=== PATIENT | female | born 1935 | race African-American/Black ===

== ENCOUNTER 2022-01-07 06:45 | Inpatient (IN) | payer OTHER ==
--- OUTSIDE RECORDS SUMMARY | 2022-01-07 07:00 | XMS REPORT | Continuity of Care Document ---
:1935 Author Organization [facility] t Address [address] [place] [address] Care Team Providers Name Role Phone Francesca Villafana Attending Clinician Unavailable MANUEL HONG Attending Clinician Unavailable KATELYN KHAN Attending Clinician Unavailable Payers Payer Name Policy Type Policy Number Effective Date Expiration Date S lalita MEDICARE A B [id number] 1999 00:00:00 Problems This patient has no known problems. Allergies, Adverse Reactions, Alerts Allergy Allergy Status Severity Reaction(s) Onset Inactive Treating Comm ents Source Name Type Date Date Clinician NO KNOWN Allergy Active [facility] Metoprol Adverse Active Info Not Commo n ol Reaction Available Spiri t Tartrate - [facility] Medications Ordered Filled Start Stop Current Ordering Indication Dosage Frequency Signature Comments Components Source Medication Medication Date Date Medication? Clinician (SIG) Name Name Eliquis 2.5 Eliquis 2.5 2020-0 2020- No Na Villafana one Common mg mg 2-10 08-08 [facility] 00:00: 00:00 - [facility] 00 :00 [facility] Sotalol HCl Sotalol HCl Yes Na Villafana 0.5 tablet [facility] Boniva Boniva Yes Na Villafana TAKE 1 Common TABLET BY Spirit MOUTH ONCE - [facility] A MONTH [facility] Vitamin D-3 Vitamin D-3 Yes Na Villafana 1 capsule [facility] Betapace Betapace Yes Na Villafana 1 tablet [facility] Amlodipine Amlodipine Yes Na Villafana 1 tablet Common Besylate Besylate [facility] Pravachol Pravachol Yes Na Villafana 1 tablet Common [facility] Pravastatin Pravastatin Yes Na Villafana TAKE 1 Common Sodium Sodium TABLET [facility] EVERY DAY [facility] Immunizations Ordered Immunization Filled Immunization Date Status Commen ts Source Name Name Cookie Gary 2019-09-04 Completed Common [facility] 00:00:00 - [facility] Vital Signs Vital Name Observation Time Observation Value Comments Source HEIGHT 2020-07-17 13:01:00 147.3 cm WEIGHT 2020-07-17 13:01:00 35.834 kg HEIGHT 2020-07-12 11:37:00 147.3 cm WEIGHT 2020-07-12 11:37:00 35.834 kg HEIGHT 2020-07-12 11:37:00 147.3 cm WEIGHT 2020-07-12 11:37:00 35.834 kg Procedures This patient has no known procedures. Encounters Start End Encounter Admission Attending Care Care Encounter Source Date/Time Date/Time Type Type Clinicians Facility Department ID 2021-11-05 Outpatient Villafana, Na STLMLC STLMLC [id number] Common 14:58:01 [facility] 2021-09-26 Outpatient Villafana, Na STLMLC STLMLC [id number] 2 Common 09:49:00 [facility] 2021-09-25 Outpatient Villafana, Na STLMLC STLMLC [id number] 2 Common 09:27:01 [facility] 2021-09-24 Outpatient Villafana, Na STLMLC STLMLC [id number] 2 Common 11:19:00 [facility] 2021-08-20 Outpatient Villafana, Na STLMLC STLMLC [id number] 2 Common 12:23:50 [facility] 2021-08-20 Outpatient Villafana, Na STLMLC STLMLC [id number] 2 Common 12:23:21 [facility] 2021-08-20 Outpatient Villafana, Na STLMLC STLMLC [id number] 2 Common 12:02:45 [id number] [facility] 2021-08-20 Outpatient Villafana, Na STLMLC STLMLC [id number] 2 Common 11:54:51 [id number] [facility] 2021-08-20 Outpatient Villafana, Na STLMLC STLMLC [id number] 2 Common 11:38:08 [id number] [facility] 2021-12-26 2021-12-26 ambulatory STLMLC STLMLC [id number] Common 00:00:00 00:00:00 [facility] 2021-10-22 2021-10-22 ambulatory STLMLC STLMLC [id number] Common 00:00:00 00:00:00 [facility] 2021-10-08 2021-10-08 ambulatory STLMLC STLMLC [id number] Common 00:00:00 00:00:00 [facility] 2021-09-26 2021-09-26 ambulatory STLMLC STLMLC [id number] Common 00:00:00 00:00:00 [facility] 2021-09-26 2021-09-26 ambulatory STLMLC STLMLC [id number] Common 00:00:00 00:00:00 [facility] 2021-08-27 2021-08-27 ambulatory STLMLC STLMLC [id number] Common 00:00:00 00:00:00 [facility] 2020-09-26 2020-09-26 Outpatient STLMLC STL[facility]C [id number] Common 00:00:00 00:00:00 [facility] 2020-09-25 2020-09-25 Outpatient STLMLC STLMLC [id number] Common 00:00:00 00:00:00 [facility] 2020-08-16 2020-08-16 Outpatient STLMLC STL[facility]C [id number] Common 00:00:00 00:00:00 [facility] 2020-07-17 2020-07-17 Outpatient HE, JILL [facility] [id number] [facility] 00:00:00 00:00:00 [facility] 2020-07-12 2020-07-12 Emergency ER [facility] Emergency [id number] [facility] 11:21:00 11:21:00 2020-05-31 2020-05-31 Outpatient STLMLC STLMLC [id number] Common 00:00:00 00:00:00 [facility] 2020-05-22 2020-05-22 Outpatient STLMLC STL[facility]C [id number] Common 00:00:00 00:00:00 [facility] 2020-03-13 2020-03-13 [id number] Common 08:40:00 08:40:[address] [facility] 2019-11-09 2019-11-09 [facility] [id number] Common 12:11:00 12:11:[address] [facility] 2019-09-04 2019-09-04 [facility] [id number] Common 08:00:00 08:00:[address] [facility] 2019-08-10 2019-08-10 [facility] [id number] Common 09:49:00 09:49:[address] [facility] 2019-08-10 2019-08-10 [facility] [id number] Common 09:43:00 09:43:[address] [facility] 2019-08-10 2019-08-10 [facility] [id number] Common 09:43:00 09:43:[address] [facility] 2019-08-10 2019-08-10 [facility] [id number] Common 09:42:00 09:42:[address] [facility] 2019-08-09 2019-08-09 [facility] [id number] Common 14:50:00 14:50:[address] [facility] 2019-05-16 2019-05-16 [facility] [id number] Common 14:45:00 14:45:[address] [facility] 2019-03-03 2019-03-03 [facility] [id number] Common 08:00:00 08:00:[address] [facility] 2018-11-03 2018-11-03 [facility] [id number] Common 10:18:00 10:18:[address] [facility] 2018-10-27 2018-10-27 [facility] [id number] Common 08:30:00 08:30:[address] [facility] 2018-09-12 2018-09-12 [facility] [id number] Common 08:39:00 08:39:[address] [facility] 2018-09-01 2018-09-01 [facility] [id number] Common 11:06:00 11:06:[address] [facility] 2018-09-01 2018-09-01 [facility] [id number] Common 11:05:00 11:05:[address] [facility] 2018-09-01 2018-09-01 [facility] [id number] Common 08:15:00 08:15:[address] [facility] 2018-03-04 2018-03-04 [facility] [id number] Common 08:15:00 08:15:[address] [facility] Results Test Description Test Time Test Comments Results Result Sour e Comments CT, BRAIN, WITHOUT 2020-07-12 Reason for CONTRAST 14:09:00 exam:->FALLWha t is the JOHN patient's [facility] sedation CENTERName: roland CANALES-> ZEESHAN R : No Sedation 1935 Sex: F FI NAL REPORT CT Head without contrast CLINICAL HISTORY: Unlisted Reason for ExamFALL TECHNIQUE: Contiguous axial images through the head without contrast. This exam was performed according to the departmental dose optimization program which includes automated exposure control, adjustment of the mA and/or kV according to the patient size, and/or use of an iterative reconstruction technique. COMPARISON: None FINDINGS: There is no evidence of skull fracture or intracranial hemorrhage. There is periventricular and subcortical white matter hypodensity which is nonspecific but compatible with chronic microvascular ischemic change. There are atherosclerotic calcifications of the intracranial circulation. There is generalized parenchymal volume loss without hydrocephalus, midline shift, or apparent mass effect. There are no extra-axial fluid collections. The paranasal sinuses are well-aerated. IMPRESSION: No evidence of skull fracture or intracranial hemorrhage. Signed: Gregg Zepeda MDRort Verified Date/Time: 07/12/2020 14:09:51 Reading Location: [address] Neuro Reading Room , KNEE, 2020-07-12 Reason for COMPLETE (4 12:57:00 exam:->FALL VIEWS), LEFT [facility] CENTERName: ZEESHAN CANALES : 1935 Sex: F FI NAL REPORT TECHNIQUE: Four views of left knee HISTORY: FALL. COMPARISON: None. IMPRESSION:No acute displaced fracture or dislocation. Slightly limited exam due to degenerative change.Severe joint space narrowing with osteophytosis and multiple posterior knee calcific densities, likely loose bodies.Vascular calcifications. Signed: Henry Elam MDReport Verified Date/Time: 07/12/2020 12:57:12 Reading Location: [facility] Radiology Reading Room ONIN I 2020-07-12 12:28:00 Test Item Value Reference Range Interpretation Comme nts TROPONIN I (BEAKER) (test code = 397) < ng/mL 0.00-0.15 Troponin I (TnI) levels must be interpreted in the context of the presenting symptoms and the clinical findings. Elevated TnI levels indicate myocardial damage, but are not specific for ischemic heart disease. Elevated TnI levels are seen in patients with other cardiac conditions (including myocarditis and congestive heart failure), and slight TnI elevations occur in patients with other conditions, including sepsis, renal failure, acidosis, acute neurological disease, and persistent tachyarrhythmia.Software Installer ID - [id number] METABOLIC [id number] 12:23:00 Test Item Value Reference Range Interpretation Comments SODIUM (BEAKER) 130 meq/L 135-148 L (test code = 381) POTASSIUM (BEAKER) 4.8 meq/L 3.6-5.5 (test code = 379) CHLORIDE (BEAKER) 91 meq/L 98-106 L (test code = 382) CO2 (BEAKER) (test 30 meq/L 20-29 H code = 355) BLOOD UREA NITROGEN 21 mg/dL 10-26 (BEAKER) (test code = 354) CREATININE (BEAKER) 0.82 mg/dL 0.50-1.20 (test code = 358) GLUCOSE RANDOM 114 mg/dL 70-110 H (BEAKER) (test code = 652) CALCIUM (BEAKER) 9.5 mg/dL 8.5-10.5 (test code = 697) EGFR (BEAKER) (test 80 mL/min/1.73 INSUFF ICIENT CLINICAL code = 1092) sq m DATA TO CALCULA TE ESTIMATED GFR. Software Installer ID - [id number] ID - [id number] ID - [id number] ID - [id number] ID - [id number] ID - [id number] ID - [id number] ID - [id number] ID - [id number] ID - [id number] ID - [id number] ID - [id number] W/PLT COUNT & AUTO [id number] 12:11:00 Test Item Value Reference Range Interpretation Comments WHITE BLOOD CELL COUNT (BEAKER) 6.5 K/ L 4.0-10.0 (test code = 775) RED BLOOD CELL COUNT (BEAKER) 4.86 M/ L 4.00-5.00 (test code = 761) HEMOGLOBIN (BEAKER) (test code = 14.4 GM/DL 12.0-15.5 410) HEMATOCRIT (BEAKER) (test code = 43.6 % 36.0-46.0 411) MEAN CORPUSCULAR VOLUME (BEAKER) 89.7 fL 82.0-99.0 (test code = 753) MEAN CORPUSCULAR HEMOGLOBIN 29.6 pg 27.0-33.0 (BEAKER) (test code = 751) MEAN CORPUSCULAR HEMOGLOBIN CONC 33.0 GM/DL 32.0-36.0 (BEAKER) (test code = 752) RED CELL DISTRIBUTION WIDTH 12.4 % 12.0-15.0 (BEAKER) (test code = 412) PLATELET COUNT (BEAKER) (test 341 K/CU MM 150-430 code = 756) MEAN PLATELET VOLUME (BEAKER) 9.9 fL 6.0-11.5 (test code = 754) NUCLEATED RED BLOOD CELLS 0 /100 WBC 0-0 (BEAKER) (test code = 413) NEUTROPHILS RELATIVE PERCENT 66 % (BEAKER) (test code = 429) LYMPHOCYTES RELATIVE PERCENT 21 % (BEAKER) (test code = 430) MONOCYTES RELATIVE PERCENT 12 % (BEAKER) (test code = 431) EOSINOPHILS RELATIVE PERCENT 0 % (BEAKER) (test code = 432) BASOPHILS RELATIVE PERCENT 1 % (BEAKER) (test code = 437) NEUTROPHILS ABSOLUTE COUNT 4.24 K/ L 1.80-8.00 (BEAKER) (test code = 670) LYMPHOCYTES ABSOLUTE COUNT 1.34 K/ L 1.48-4.50 L (BEAKER) (test code = 414) MONOCYTES ABSOLUTE COUNT (BEAKER) 0.80 K/ L 0.00-1.30 (test code = 415) EOSINOPHILS ABSOLUTE COUNT 0.01 K/ L 0.00-0.50 (BEAKER) (test code = 416) BASOPHILS ABSOLUTE COUNT (BEAKER) 0.03 K/ L 0.00-0.20 (test code = 417) IMMATURE GRANULOCYTES-RELATIVE 1 % 0-0 H PERCENT (BEAKER) (test code = 2801)
[2022-01-07] MEDS ORDERED: NA CHLORIDE 0.9% 500 ML ONE (07:44)
[2022-01-07 07:49] LABS: Absolute Lymphocytes (CBC) 1.4 K/uL (0.7-4.9); Hematocrit 38.2 % (36.0-45.0); Lymphocytes % 24.6 % (15.3-44.8); MPV 7.9 fL (7.6-11.3); RBC Red Blood Cell Count 4.36 M/uL (3.86-4.86)
[2022-01-07 07:58] LABS: Potassium 3.5 mmol/L (3.5-5.1); Troponin High Sensitivity 17.8 pg/mL (<58.9)
--- NOTE | 2022-01-07 08:18 | RAD REPORT ---
EXAM DESCRIPTION: RAD - Chest Single View - 01/07/2022 8:01 am CLINICAL HISTORY: weakness COMPARISON: Portable 06/22/2016 TECHNIQUE: AP portable chest image was obtained 01/07/2022 8:01 am . FINDINGS: Scattered fibrotic changes are seen in the lung peña with no peripheral mass or consolid ation. Lung markings are less prominent than the comparison study but could still mask early intersti tial edema or infiltrate. Left base markings are slightly more pronounced. No oral hilar mass or lymphadenopathy seen. Trachea is midline. Heart and vasculature are normal. No measurable pleural effusion and no pneumothorax. No acute bony abnormality seen. No acute aortic find ings suspected. IMPRESSION: No mass, consolidation or significant failure finding. Prominent baseline interstitial pattern. This could potentially mask early interstitial edema or infi ltrate, particularly in the medial left base.
--- NOTE | 2022-01-07 09:46 | EDPHYS ---
Physician Documentation [facility] Name: Deonte Newell Age: 86 yrs Sex: Female : 1935 Arrival Date: 01/07/2022 Time: 06:49 Bed 13 Private MD: ED Physician Sunny Max HPI: 01/07 07:33 This 86 yrs old Black Female presents to ER via Unassigned with complaints of General kdr Weakness. 07:33 Patient was brought to the ED by family for weakness. Family states that the patient kdr has had decreased appetite recently and is not eating well. She does drink 1-2 ensures per day but otherwise has very poor nutrition at this time. Patient has some baseline dementia and is a poor historian. Family has no other focal concern. They deny fever chills or respiratory infection recently.. Onset: The symptoms/episode began/occurred gradually, at an unknown time. Severity of symptoms: At their worst the symptoms were mild moderate just prior to arrival, in the emergency department the symptoms are unchanged. The patient has not experienced similar symptoms in the past. The patient has not recently seen a physician. Historical: - Allergies: 07:36 No Known Allergies; jl7 - Home Meds: 07:36 Eliquis 2.5 mg oral tab [Active]; memantine 10 mg oral tab [Active]; sotalol 80 mg Oral jl7 tab 0.5 tab [Active]; pravastatin 40 mg oral tab [Active]; amlodipine 2.5 mg tab [Active]; donepezil 10 mg oral tab [Active]; - PMHx: 07:36 Hypertension; Cerebrovascular accident; Dementia; Hypercholesterolemia; jl7 - Immunization history:: Adult Immunizations unknown. - Social history:: Smoking status: Patient denies any tobacco usage or history of. ROS: 07:33 Constitutional: Negative for fever, chills -she has had poor appetite and general kdr malaise Eyes: Negative for injury, pain, redness, and discharge, Neck: Negative for injury, pain, and swelling, Cardiovascular: Negative for chest pain, palpitations, and edema, Respiratory: Negative for shortness of breath, cough, wheezing, and pleuritic chest pain, Abdomen/GI: Negative for abdominal pain, nausea, vomiting, diarrhea, and constipation, Back: Negative for injury and pain, MS/Extremity: Negative for injury and deformity, Skin: Negative for injury, rash, and discoloration, Psych: Negative for depression, anxiety, suicide ideation, homicidal ideation, and hallucinations, Allergy/Immunology: Negative for hives, rash, and allergies, Endocrine: Negative for neck swelling, polydipsia, polyuria, polyphagia, and marked weight changes, Hematologic/Lymphatic: Negative for swollen nodes, abnormal bleeding, and unusual bruising. 07:33 Neuro: Positive for weakness. Exam: 07:36 Constitutional: This is a well developed, well nourished patient who is awake, alert, kdr and in no acute distress. Head/Face: Normocephalic, atraumatic. Eyes: Pupils equal round and reactive to light, extra-ocular motions intact. Lids and lashes normal. Conjunctiva and sclera are non-icteric and not injected. Cornea within normal limits. Periorbital areas with no swelling, redness, or edema. Neck: Trachea midline, no thyromegaly or masses palpated, and no cervical lymphadenopathy. Supple, full range of motion without nuchal rigidity, or vertebral point tenderness. No Meningismus. Chest/axilla: Normal chest wall appearance and motion. Nontender with no deformity. No lesions are appreciated. Cardiovascular: Regular rate and rhythm with a normal S1 and S2. No gallops, murmurs, or rubs. Normal PMI, no JVD. No pulse deficits. Respiratory: Lungs have equal breath sounds bilaterally, clear to auscultation and percussion. No rales, rhonchi or wheezes noted. No increased work of breathing, no retractions or nasal flaring. Abdomen/GI: Soft, non-tender, with normal bowel sounds. No distension or tympany. No guarding or rebound. No evidence of tenderness throughout. Back: No spinal tenderness. No costovertebral tenderness. Full range of motion. Skin: Warm, dry with normal turgor. Normal color with no rashes, no lesions, and no evidence of cellulitis. MS/ Extremity: Pulses equal, no cyanosis. Neurovascular intact. Full, normal range of motion. Neuro: Awake and alert, GCS 15, oriented to person, place, time, and situation. Cranial nerves II-XII grossly intact. Motor strength 5/5 in all extremities. Sensory grossly intact. Cerebellar exam normal. Normal gait. Psych: Awake, alert, with orientation to person, place and time. Behavior, mood, and affect are within normal limits. 07:36 ECG was reviewed by the Attending Physician. Vital Signs: 07:10 BP 132 / 76; Pulse 66; Resp 15; Temp 97.2(TE); Pulse Ox 100% on R/A; Weight 31.75 kg jl7 (R); Pain 0/10; 08:54 BP 146 / 71; Pulse 66; Resp 24; Pulse Ox 100% on R/A; ww 09:00 BP 142 / 76; Pulse 64; Resp 26; ww 10:00 BP 163 / 60; Pulse 65; Resp 19; ww 12:40 BP 173 / 80; Pulse 65; Resp 19; Pulse Ox 100% ; ww MDM: 09:45 Patient medically screened. kdr 09:46 Data reviewed: vital signs, nurses notes, lab test result(s), radiologic studies. kdr Counseling: I had a detailed discussion with the patient and/or guardian regarding: the historical points, exam findings, and any diagnostic results supporting the discharge/admit diagnosis, lab results, radiology results, the need for further work-up and treatment in the hospital. 01/07 07:15 Order name: Basic Metabolic Panel; Complete Time: 07:58 kdr 01/07 07:15 Order name: CBC with Diff; Complete Time: 07:58 kdr 01/07 07:15 Order name: Troponin HS; Complete Time: 07:58 kdr 01/07 09:09 Order name: Flu kdr 01/07 09:09 Order name: COVID-19 SARS RT PCR (Document "Date of Onset" if Symptomatic) bd 01/07 12:09 Order name: Osmolality, Serum EDMS 01/07 07:15 Order name: XRAY Chest (1 view); Complete Time: 08:54 kdr 01/07 07:15 Order name: EKG; Complete Time: 07:15 kdr 01/07 07:15 Order name: Cardiac monitoring; Complete Time: 07:28 kdr 01/07 07:15 Order name: EKG - Nurse/Tech; Complete Time: 07:28 kdr 01/07 07:15 Order name: IV Saline Lock; Complete Time: 07:28 kdr 01/07 07:15 Order name: Labs collected and sent; Complete Time: 07:28 kdr 01/07 07:15 Order name: O2 Per Protocol; Complete Time: 07:28 kdr 01/07 07:15 Order name: O2 Sat Monitoring; Complete Time: : kdr 01/07 11:28 Order name: Labs - recollect needed: recollect c7; Complete Time: 12:57 bd EC:36 Rate is 74 beats/min. Rhythm is irregular, A fib with Unifocal PVCs. QRS Dixon is kdr Normal. MS interval is normal. QRS interval is normal. Clinical impression: Atrial Fibrillation. Administered Medications: 07:41 Drug: NS 0.9% 500 ml Route: IV; Rate: bolus; Site: left antecubital; ww Disposition Summary: 01/07/22 09:45 Hospitalization Ordered Hospitalization Status: Inpatient Admission kdr Location: Telemetry/MedSurg (Inpatient) kdr Condition: Fair kdr Problem: new kdr Symptoms: have improved kdr Bed/Room Type: Standard kdr Provider: Werner Zacarias(01/07/22 10:23) kdr Room Assignment: [facility](01/07/22 12:14) dw Diagnosis - Hypo-osmolality and hyponatremia kdr - Weakness kdr - Unspecified dementia with behavioral disturbance kdr Forms: - Medication Reconciliation Form kdr - SBAR form kdr Signatures: Dispatcher [employer] EDMS Malina Woods Diana, RN RN dw Sunny Max MD MD kdr Leal, Jahala, RN RN jlIsis Soler RN RN ww Corrections: (The following items were deleted from the chart) 09:41 08:54 Knee Left 3 View+RAD.RAD.BRZ ordered. EDMS EDMS 10:23 09:45 Basilio Johnson kdr kdr 12:14 09:45 kdr dw
--- NOTE | 2022-01-07 09:46 | ER ---
Nurse's Notes [facility] Name: Deonte Newell Age: 86 yrs Sex: Female : 1935 Arrival Date: 01/07/2022 Time: 06:49 Bed 13 Private MD: Diagnosis: Hypo-osmolality and hyponatremia;Weakness;Unspecified dementia with behavioral disturbance Presentation: 01/07 07:10 Chief complaint: Patient's son or daughter states: Weakness all over x 1 week, baseline jl7 able to walk with walker and currently too weak to walk. 07:10 Coronavirus screen: At this time, the client does not indicate any symptoms associated jl7 with coronavirus-19. Ebola Screen: No symptoms or risks identified at this time. Initial Sepsis Screen: Does the patient meet any 2 criteria? No. Patient's initial sepsis screen is negative. Does the patient have a suspected source of infection? No. Patient's initial sepsis screen is negative. Risk Assessment: Do you want to hurt yourself or someone else? Patient reports no desire to harm self or others. Onset of symptoms is unknown. Care prior to arrival: None. 07:10 Method Of Arrival: Wheelchair jl7 07:10 Acuity: MICHAEL 3 jl7 Triage Assessment: 07:10 General: Appears in no apparent distress. uncomfortable, Behavior is calm, cooperative, jl7 appropriate for age. Pain: Denies pain. Neuro: Level of Consciousness is awake, alert, obeys commands, Oriented to person, place. Cardiovascular: Patient's skin is warm and dry. Respiratory: Airway is patent Respiratory effort is even, unlabored, Respiratory pattern is regular, symmetrical. Derm: Skin is dry, Skin is normal, Skin temperature is warm. Historical: - Allergies: 07:36 No Known Allergies; jl7 - Home Meds: 07:36 Eliquis 2.5 mg oral tab [Active]; memantine 10 mg oral tab [Active]; sotalol 80 mg Oral jl7 tab 0.5 tab [Active]; pravastatin 40 mg oral tab [Active]; amlodipine 2.5 mg tab [Active]; donepezil 10 mg oral tab [Active]; - PMHx: 07:36 Hypertension; Cerebrovascular accident; Dementia; Hypercholesterolemia; jl7 - Immunization history:: Adult Immunizations unknown. - Social history:: Smoking status: Patient denies any tobacco usage or history of. Screenin:28 Abuse screen: Denies threats or abuse. Denies injuries from another. Nutritional ww screening: No deficits noted. Tuberculosis screening: No symptoms or risk factors identified. Fall Risk None identified. Assessment: 07:28 General: Appears in no apparent distress. Behavior is cooperative. Pain: Denies pain. ww Neuro: Smith Agitation-Sedation Scale (RASS): 0 - Alert and Calm Level of Consciousness is awake, alert, obeys commands, confused, dementia. Oriented to person, place, Moves all extremities. Weakness Speech is normal. Cardiovascular: Capillary refill < 3 seconds Patient's skin is warm and dry. Edema is absent. Rhythm is irregular Chest pain is denied. Respiratory: Airway is patent Respiratory effort is even, unlabored, Respiratory pattern is regular, symmetrical. GI: No signs and/or symptoms were reported involving the gastrointestinal system. Abdomen is non-distended. : No signs and/or symptoms were reported regarding the genitourinary system. Derm: Skin is intact, is thin. 08:53 Reassessment: Patient appears in no apparent distress at this time. No changes from ww previously documented assessment. Patient and/or family updated on plan of care and expected duration. Pain level reassessed. patients family states that patient is complaining of knee pain. When asked patient if her knee hurt she denies any pain. Palpated and performed range of motion and patient still denies any pain. Dr. Max notified. 09:35 Reassessment: Patient appears in no apparent distress at this time. No changes from ww previously documented assessment. Patient and/or family updated on plan of care and expected duration. Pain level reassessed. 10:35 Reassessment: Patient appears in no apparent distress at this time. No changes from ww previously documented assessment. Patient and/or family updated on plan of care and expected duration. Pain level reassessed. 12:40 Reassessment: Patient appears in no apparent distress at this time. No changes from ww previously documented assessment. Patient and/or family updated on plan of care and expected duration. Pain level reassessed. 12:48 Reassessment: report given to Brianna. Vital Signs: 07:10 BP 132 / 76; Pulse 66; Resp 15; Temp 97.2(TE); Pulse Ox 100% on R/A; Weight 31.75 kg jl7 (R); Pain 0/10; 08:54 BP 146 / 71; Pulse 66; Resp 24; Pulse Ox 100% on R/A; ww 09:00 BP 142 / 76; Pulse 64; Resp 26; ww 10:00 BP 163 / 60; Pulse 65; Resp 19; ww 12:40 BP 173 / 80; Pulse 65; Resp 19; Pulse Ox 100% ; ww ED Course: 06:49 Patient arrived in ED. bp1 07:02 Sunny Max MD is Attending Physician. kdr 07:10 Arm band placed on right wrist. jl7 07:12 Isis Farias, RN is Primary Nurse. ww 07:28 Patient has correct armband on for positive identification. Placed in gown. Bed in low ww position. Call light in reach. Side rails up X2. Client placed on continuous cardiac and pulse oximetry monitoring. NIBP monitoring applied. Warm blanket given. 07:28 EKG done. ww 07:36 Triage completed. jl7 08:02 XRAY Chest (1 view) In Process Unspecified. EDMS 09:44 Basilio Johnson MD is Hospitalizing Provider. kdr 10:23 Werner Zacarias is Hospitalizing Provider. kdr 12:41 No provider procedures requiring assistance completed. Patient admitted, IV remains in ww place. Administered Medications: 07:41 Drug: NS 0.9% 500 ml Route: IV; Rate: bolus; Site: left antecubital; ww Medication: 07:28 VIS not applicable for this client. ww Outcome: 09:45 Decision to Hospitalize by Provider. kdr 12:41 Admitted to Med/surg ww 12:41 Condition: stable 12:41 Instructed on the need for admit. 13:05 Patient left the ED. ww Signatures: Dispatcher [employer] EDMS Sunny Max MD MD kdr Shaggy Boswell RN RN jl7 Renetta Gardner [facility] Isis Farias, RN RN ww
[2022-01-07] MEDS ORDERED: HYDROCODONE/APAP 5/325 MG TAB PO PRN (10:23)
[2022-01-07] MEDS ORDERED: GUAIFENESIN/DM 5 ML UCUP PO PRN (10:25)
[2022-01-07] MEDS ORDERED: ACETAMINOPHEN 500 MG TAB PO PRN (10:26)
[2022-01-07] MEDS ORDERED: ONDANSETRON 4 MG/2 ML VIAL IV PRN (10:26)
[2022-01-07] MEDS ORDERED: GLUCAGON 1 MG/VIAL IM PRN (10:40)
[2022-01-07] MEDS ORDERED: D50W 25 GM/50 ML SYRINGE IV PRN (10:40)
[2022-01-07] MEDS ORDERED: MELATONIN 5 MG TABLET PO PRN (10:42)
--- NOTE | 2022-01-07 10:48 | P.HP ---
Certification for Inpatient Patient admitted to: Observation With expected LOS: <2 Midnights Patient will require the following post-hospital care: None Practitioner: I am a practitioner with admitting privileges, knowledge of patient current condition, hospital course, and medical plan of care. Services: Services provided to patient in accordance with Admission requirements found in Title 42 Section 412.3 of the Code of Federal Regulations Patient History Date of Service: 01/07/22 Reason for admission: Generalized weakness History of Present Illness: Patient is an 86-year-old female with a past medical history significant for hypertension, CVA, dementia, hypertension who presents with complaint of generalized weakness. Patient alert and oriented x1. Patient is a poor historian, confused and unable to provide any history. Family reported that for the past 2 weeks patient has been getting weaker and has been ambulating slower than normal. Family reported that patient's appetite has been poor. No other signs or symptoms reported. Symptoms are aggravated or relieved by nothing. Patient was brought to the hospital for medical evaluation. Allergies No Known Allergies Allergy (Verified 06/20/16 15:41) Home Medications: Guaif/Dm [Robitussin Dm*] 10 ml PO Q6H PRN #0 ucup 06/16/16 Digoxin [Lanoxin*] 0.25 mg PO DAILY #30 tab 07/08/16 Ferrous Sulfate [Ferrous Sulfate*] 325 mg PO BID #60 tab 07/08/16 Magnesium Oxide [Mag 0X*] 400 mg PO BID #60 tab 07/08/16 Beto/Bacit/Poly Oint [Neosporin Ointment*] 1 appl TOP BID #1 tube 07/08/16 Sotalol HCl [Betapace*] 40 mg PO BID 6AM 6PM #60 tab 07/08/16 glipiZIDE [Glucotrol*] 2.5 mg PO BIDWM #60 tab 07/08/16 - Past Medical/Surgical History Diabetic: Yes -: HTN -: Arthritis -: Hyponatermia -: Bilat THR - Family History Mom -: Hypertension, Other (see notes) Notes: Arthritis - Social History Smoking Status: Never smoker Alcohol use: No CD- Drugs: No Caffeine use: Yes Review of Systems is unable to be obtained (Patient is confused and unable to provide any history.) Physical Examination - Physical Exam General: Alert, Oriented x1, Demented HEENT: Normocephalic, PERRLA Neck: Supple, 2+ carotid pulse no bruit, JVD not distended Respiratory: Clear to auscultation bilaterally, Normal air movement Cardiovascular: Normal pulses, Regular rate/rhythm Capillary refill: >2 Seconds Gastrointestinal: Normal bowel sounds, Soft and benign, Non-distended Musculoskeletal: No clubbing, No swelling, No erythema Integumentary: No rashes, No breakdown, No significant lesion, No tenderness/swelling Neurological: Normal speech, Normal tone, Sensation intact Lymphatics: No axilla or inguinal lymphadenopathy - Studies Laboratory Data (last 24 hrs) 01/07/22 07:32: WBC 5.6, Hgb 12.8, Hct 38.2, Plt Count 260 01/07/22 07:32: Sodium 128 L, Potassium 3.5, BUN 10, Creatinine 0.76, Glucose 112 H Microbiology Data (last 24 hrs): 01/07/22 09:35 Nasopharnyx Influenza Type A Antigen Screen - Final 01/07/22 09:35 Nasopharnyx Influenza Type B Antigen Screen - Final Assessment and Plan - Plan -- Generalized weakness. Likely due to hyponatremia. Continue supportive care. --Hyponatremia. Likely secondary to dehydration. Urine\serum sodium, serum\urine osmole pending. Nephrology consulted. Patient placed on IV hydration. Further management per vest finisher. -- Hypertension. Poorly controlled. Continue home medications and hydralazine as needed. --Osteoarthritis. We will manage pain with current pain medication regimen. --Severe protein calorie malnutrition. Photographic Double consulted. Will await further recommendations. --KALANI. Likely secondary to dehydration. Continue IV hydration. We will continue to monitor renal functions. --DM2. BS monitoring with sliding scale insulin. --MARIBEL. Continue ferrous sulfate. --History of CVA. Continue aspirin. --Dementia. Continue home medications and supportive care. --DVT prophylaxis with heparin subQ. Discharge Plan: Home Plan to discharge in: 48 Hours - Advance Directives Does patient have a Living Will: No Does patient have a Durable POA for Healthcare: No - Code Status/Comfort Care Code Status Assessed: Yes Code Status: Full Code Physician Review: Patient Assessed, Agree with Above Assessment and Plan Critical Care: No
[2022-01-07] MEDS ORDERED: D10W 125 ML IV PRN (10:58)
[2022-01-07] MEDS ORDERED: INSULIN -REGULAR HUMAN 50 UNIT/0.5 ML ML SQ SCH (11:30)
[2022-01-07] MEDS ORDERED: NA CHLORIDE 0.9% 1,000 ML IV SCH (12:00)
[2022-01-07] MEDS ORDERED: POTASSIUM CL 40 MEQ in NA CHLORIDE 0.9% 500 ML IV SCH (13:00)
[2022-01-07 13:30] LABS: Magnesium 1.9 mg/dL (1.8-2.4); Thyroid Stimulating Hormone 1.03 uIU/mL (0.360-3.740)
--- NOTE | 2022-01-07 13:38 | CON ---
Date of Consultation: 01/07/2022 Reason For Consultation: Hyponatremia, hypertension. History Of Present Illness: This is a pleasant 86-year-old female with significant past medical history of hypertension, arthritis, hyperlipidemia, the patient was in her regular state of health according to the family in the last few weeks. The patient had decrease in her intake and fatigue with wobbly gait. Today found to be by the bedside after fall without hitting her head, for that reason brought to the hospital. Upon arrival to the hospital, found to be hyponatremic, sodium down to 128. For that reason, we have been consulted. Reviewing the medications for the patient, apparently the patient on hydrochlorothiazide by the family. No diuretic. No ANASTACIO inhibitor. The patient denied taking any nonsteroidal. Past Medical History: Includes; 1. Hypertension. 2. Arthritis. Family History: Positive for hypertension. Social History: Lives with family. Denied smoking. Denied drinking. Denied drug abuse. Allergies: NO KNOWN DRUGS ALLERGY. Review of Systems: Head and Neck: Has headache. GI: Decreased intake. : No polyuria. No dysuria. No hematuria. Track Laborer: No vaginal discharge. Respiratory: No shortness of breath. Cardiovascular: No chest pain. Endocrine: No polydipsia. Skin: No rash. Neuro: Has fall. Has wobbly gait. Musculoskeletal: Generalized fatigue. Physical Examination: Vital Signs: When I saw the patient; blood pressure 110/62, pulse of 88. Chest: Clear to auscultation. Heart: S1, S2. Systolic murmur. Abdomen: Soft, nontender. Extremity: No edema. Neurologic: Alert, oriented x3. No focality. No tremor. Laboratory Data: WBC 5.6, H and H 12.8/32.8. Sodium 128, potassium 3.5, bicarb 30, BUN 10, creatinine 0.7, GFR above 60, calcium 9.7. TSH is still pending. Cortisol is still pending. Urinalysis; creatinine of 60. Urine sodium and potassium are still pending. Reviewing the record for the patient back in August 2021; sodium 135 within normal limit. Assessment And Plan: 1. Hyponatremia, mostly secondary to depletional hyponatremia. I am going to start the patient on normal saline at 75 per hour. Agree with sending the urine electrolyte, sodium and potassium osmolality and UA and sending for uric acid and TSH with cortisol as workup for the hyponatremia and we will follow up. If there are no neurological symptoms, we will repeat the lab in 6 hours to avoid any over-correction and we will follow up. 2. Hypertension, controlled, optimal. Continue current treatment. Avoid any hydrochlorothiazide. 3. Fall as by primary. 4. Hypokalemia. We will supplement. We will check for magnesium level and TSH. Thank you Sunil Andrew for the consult. Case discussed with the staff. Time spent examining the patient [id number], reviewing the data of lab and radiology discussing the case with the patient reviewing the case with the collection team lead including nursing discussing the case with the hospitalist 65-minute LENI/MCKAY Voice ID: [id number] Report ID: [id number] MTDD
[2022-01-07 14:58] VITALS: BMI 14.1
[2022-01-07] MEDS: HEPARIN 5000 UNIT/ML 1 ML VIAL SQ SCH (17:00)
[2022-01-07] MEDS: SOTALOL HCL 80 MG TAB PO SCH (18:22)
--- NOTE | 2022-01-07 19:17 | EKG ---
Test Date: 2022-01-07 Test Time: 07:19:56 Stage Electrician Helper: ZEV MEASUREMENT RESULTS: Intervals: Rate: 60 DC: QRSD: 84 QT: 452 QTc: 452 Tebbetts: P: DC: QRS: 22 T: 92 INTERPRETIVE STATEMENTS: Atrial fibrillation Moderate voltage criteria for LVH, may be normal variant Nonspecific ST and T wave abnormality Abnormal ECG Compared to ECG 06/14/2016 05:42:53 Left ventricular hypertrophy now present ST (T wave) deviation now present Sinus rhythm no longer present Atrial premature complex(es) no longer present T-wave abnormality no longer present Possible ischemia no longer present Prolonged QT interval no longer present Electronically Signed On 01-07-22 19:15:47 CDT by Axel Lance
[2022-01-07] MEDS: BACI/NEOMYCIN/POLY OINT 15GM TOP SCH (21:00)
[2022-01-07] MEDS: FERROUS SULFATE 325 MG TAB PO SCH (21:08)
[2022-01-07] MEDS: MAGNESIUM OXIDE 400 MG TAB PO SCH (21:08)
[2022-01-08] MEDS: HEPARIN 5000 UNIT/ML 1 ML VIAL SQ SCH ×3 (01:25→17:11)
[2022-01-08] MEDS: SOTALOL HCL 80 MG TAB PO SCH ×2 (05:38→18:00)
[2022-01-08 06:15] LABS: Absolute Lymphocytes (CBC) 1.5 K/uL (0.7-4.9); Lymphocytes % 35.6 % (15.3-44.8); MPV 8.3 fL (7.6-11.3); RBC Red Blood Cell Count 4.14 M/uL (3.86-4.86)
[2022-01-08 07:33] LABS: Potassium 4.6 mmol/L (3.5-5.1)
[2022-01-08] MEDS: DIGOXIN 0.25 MG TABLET PO SCH (09:00)
[2022-01-08] MEDS: MAGNESIUM OXIDE 400 MG TAB PO SCH ×2 (09:00→20:41)
[2022-01-08] MEDS: BACI/NEOMYCIN/POLY OINT 15GM TOP SCH ×2 (09:00→20:40)
[2022-01-08] MEDS: ASPIRIN 325 MG TAB PO SCH (10:00)
[2022-01-08] MEDS: FERROUS SULFATE 325 MG TAB PO SCH ×2 (10:01→20:42)
--- NOTE | 2022-01-08 13:57 | P.PN ---
Subjective Date of Service: 01/08/22 Chief Complaint: Generalized weakness Patient with poor oral intake. No other complaint. No reported diarrhea. Physical Examination - Vital Signs Temperature: 97.5 F Blood Pressure: 147/65 Pulse: 54 Respirations: 18 Pulse Ox (%): 100 - Physical Exam General: In no apparent distress, Confused, Other (Dementia) HEENT: Mucous membr. moist/pink Neck: JVD not distended Respiratory: Clear to auscultation bilaterally, Normal air movement Cardiovascular: No edema, Regular rate/rhythm, Normal S1 S2 Capillary refill: <2 Seconds Gastrointestinal: Normal bowel sounds, Soft and benign, Non-distended, No tenderness Musculoskeletal: No swelling Integumentary: No rashes Neurological: Other (No focal motor deficit) - Studies Microbiology Data (last 24 hrs): 01/07/22 09:35 Nasopharnyx Influenza Type A Antigen Screen - Final 01/07/22 09:35 Nasopharnyx Influenza Type B Antigen Screen - Final Assessment And Plan - Current Problems (Diagnosis) (1) Failure to thrive Current Visit: Yes Status: Acute (2) Generalized weakness Current Visit: Yes Status: Acute (3) Dementia Current Visit: Yes Status: Acute (4) Dehydration Onset Date: 06/10/16 Current Visit: No Status: Chronic (5) Hyponatremia Onset Date: 06/10/16 Current Visit: No Status: Acute - Plan Patient brought in for poor oral intake, progressive weakness and decreasing performance status with a concern for dehydration. Patient hydrated with IV normal saline, serum sodium has improved. No KALANI. I suspect her dementia is progressing. Continue IV fluid Diet as tolerated Awaiting physical therapy input Social service on board assisting with disposition. Family looking at skilled rehab placement. May need to transition to long-term care. Physician Review: Patient Assessed, Agree with Above Assessment and Plan
[2022-01-08] MEDS ORDERED: AMLODIPINE 5 MG TAB PO ONE (14:00)
--- NOTE | 2022-01-08 15:41 | PN ---
Date of Progress Note: 01/08/2022 Subjective: The patient was admitted with hyponatremia secondary to depletional. The patient's after IV fluid sodium normalized. Physical Examination: Vital Signs: When I saw the patient; blood pressure 147/65, pulse of 54, afebrile. Chest: Clear to auscultation. Heart: S1, S2 regular. Abdomen: Soft, nontender. Extremities: No edema. Neurologic: Alert. No focality. Laboratory Data: WBC 4.3, H and H 12.4/37. Sodium 133, potassium 4.6, bicarb 28, BUN 8, creatinine 0.6, calcium 8.4. Current Medications: The patient on include digoxin, sotalol, ferrous sulfate, Tylenol, Zofran, hydrocodone, melatonin, normal saline. Assessment And Plan: 1. Hyponatremia secondary to depletional, secondary to poor intake, recovered, resolved. I am going to go ahead and discontinue IV fluid. Hypothyroidism and adrenal insufficiency have been ruled out. 2. Hypertension, controlled, optimal. Currently, blood pressure well controlled. Okay to resume low dose of amlodipine and we will follow up. 3. Fall secondary to dehydration. We will follow up with primary. Time spent examining the patient [id number], reviewing the data of lab and radiology discussing the case with the patient reviewing the case with the steam crane operator including nursing discussing the case with the hospitalist 35-minute JONG Voice ID: [id number] Report ID: [id number]
[2022-01-08 19:29] LABS: Urine Appearance Clear (Clear); Urine Bilirubin Negative (Negative); Urine Blood Trace-intact (Negative); Urine Color Yellow (Yellow); Urine Glucose Negative (Negative); Urine Protein Negative (Negative); Urine Specific Gravity 1.025 (1.005-1.030)
[2022-01-08 19:59] LABS: Urine Bacteria <20 /HPF (<20); Urine Microscopic Reflex ORDER UMIC
[2022-01-08 20:00] LABS: Urine Mucus 1+ /HPF (NONE SEEN)
[2022-01-08] MEDS: GLUCERNA SHAKE 237 ML CAN PO SCH (20:42)
[2022-01-09] MEDS: HEPARIN 5000 UNIT/ML 1 ML VIAL SQ SCH ×3 (00:30→16:38)
[2022-01-09] MEDS: SOTALOL HCL 80 MG TAB PO SCH ×3 (05:35→17:01)
[2022-01-09] MEDS: HYDRALAZINE HCL 20 MG/ML VIAL IV PRN ×2 (05:36→16:39)
[2022-01-09] MEDS: BACI/NEOMYCIN/POLY OINT 15GM TOP SCH ×2 (09:00→19:59)
[2022-01-09] MEDS: FERROUS SULFATE 325 MG TAB PO SCH ×2 (09:20→19:56)
[2022-01-09] MEDS: DIGOXIN 0.25 MG TABLET PO SCH (09:20)
[2022-01-09] MEDS: MAGNESIUM OXIDE 400 MG TAB PO SCH ×2 (09:20→19:59)
[2022-01-09] MEDS: ASPIRIN 325 MG TAB PO SCH (09:20)
[2022-01-09] MEDS: GLUCERNA SHAKE 237 ML CAN PO SCH ×2 (09:21→19:59)
--- NOTE | 2022-01-09 12:00 | P.PN ---
Subjective Date of Service: 01/09/22 Chief Complaint: Generalized weakness Subjective: No new changes Physical Examination - Vital Signs Temperature: 98.8 F Blood Pressure: 134/60 Pulse: 60 Respirations: 12 Pulse Ox (%): 99 - Physical Exam General: In no apparent distress HEENT: Atraumatic, Normocephalic Neck: Supple, JVD not distended Respiratory: Other (Symmetric chest expansion) Cardiovascular: No rubs, No murmurs Gastrointestinal: Soft and benign, No rebound Musculoskeletal: No clubbing Integumentary: No warmth Neurological: Normal tone Urinary: Other (No bladder distention) External genitalia: Deferred Rectal: Deferred Assessment And Plan - Plan 1. Hyponatremia secondary to depletional, secondary to poor intake, improved. Hypothyroidism and adrenal insufficiency have been ruled out. [place] po fluid intake. Encouraged adeq po solid food intake tid. 2. Hypertension. BP at goal. Cont current med regimen. 3. Fall secondary to dehydration. We will follow up with primary. OOB w/ assistance. Physician Review: Patient Assessed, Agree with Above Assessment and Plan
--- NOTE | 2022-01-09 17:56 | P.DS ---
Admission Date: 01/07/22 Discharge Date: 01/09/22 Disposition: TRANSFER TO SNF - REHAB Discharge Condition: FAIR Reason for Admission: Generalized weakness - Problems (1) Failure to thrive Current Visit: Yes Status: Acute (2) Generalized weakness Current Visit: Yes Status: Acute (3) Dementia Current Visit: Yes Status: Acute (4) Dehydration Onset Date: 06/10/16 Current Visit: No Status: Chronic (5) Hyponatremia Onset Date: 06/10/16 Current Visit: No Status: Acute Brief History of Present Illness: Patient is an 86-year-old female with a past medical history significant for hypertension, CVA, dementia, hypertension who presents with complaint of generalized weakness. Patient alert and oriented x1. Patient is a poor historian, confused and unable to provide any history. Family reported that for the past 2 weeks patient has been getting weaker and has been ambulating slower than normal. Family reported that patient's appetite has been poor and has not been eating much. Patient was brought to the hospital for medical evaluation. Work-up in the ED unremarkable except hyponatremia likely secondary to dehydration. Patient hospitalized for further management. Hospital Course: Patient brought in for poor oral intake, progressive weakness and decreasing performance status with a concern for dehydration. Patient hydrated with IV normal saline, serum sodium has improved. No KALANI. I suspect her dementia is progressing. She tolerated diet. Also started on Ensure. Patient seen by PT and she participated in physical therapy. PT recommended skilled rehab. Family also looking at transitioning her to long- term care. Patient has been accepted to SNF She is clinically stable for discharge. Vital Signs/Physical Exam: Temp Pulse Resp BP Pulse Ox 97.8 F 47 L 12 214/88 H 94 01/09/22 16:00 01/09/22 16:00 01/09/22 16:00 01/09/22 16:00 01/09/22 16:00 General: In no apparent distress, Oriented x1 HEENT: Mucous membr. moist/pink Neck: JVD not distended Respiratory: Clear to auscultation bilaterally, Normal air movement Cardiovascular: No edema, Regular rate/rhythm, Normal S1 S2 Gastrointestinal: Normal bowel sounds, Soft and benign, Non-distended, No tenderness Musculoskeletal: No swelling, No tenderness Integumentary: No rashes, No cyanosis Neurological: Normal strength at 5/5 x4 extr Laboratory Data at Discharge: WBC 4.3 K/uL (4.3-10.9) D 01/08/22 05:57 Hgb 12.4 g/dL (12.0-15.0) 01/08/22 05:57 Hct 37.0 % (36.0-45.0) 01/08/22 05:57 Plt Count 261 K/uL (152-406) 01/08/22 05:57 Sodium 133 mmol/L (136-145) L 01/08/22 06:50 Potassium 4.6 mmol/L (3.5-5.1) 01/08/22 06:50 BUN 8 mg/dL (7-18) 01/08/22 06:50 Creatinine 0.69 mg/dL (0.55-1.3) 01/08/22 06:50 Glucose 73 mg/dL (74-106) L 01/08/22 06:50 Uric Acid 3.9 mg/dL (2.6-6.0) 01/07/22 11:59 Phosphorus 3.0 mg/dL (2.5-4.9) 01/07/22 11:59 Magnesium 1.9 mg/dL (1.8-2.4) 01/07/22 11:59 Triglycerides 47 mg/dL (<150) 01/08/22 06:50 Cholesterol 170 mg/dL (<200) 01/08/22 06:50 HDL Cholesterol 86 mg/dL (40-60) H 01/08/22 06:50 Cholesterol/HDL Ratio 1.98 01/08/22 06:50 Home Medications: Amlodipine [Norvasc*] 2.5 mg PO DAILY 01/07/22 Apixaban [Eliquis *] 1 tab PO BID 01/07/22 Cholecalciferol (Vitamin D3) [Vitamin D3] 1 tab PO BID 01/07/22 Donepezil HCl 10 mg PO BID 01/07/22 Memantine HCl 10 mg PO BID 01/07/22 Pravastatin [Pravachol*] 40 mg PO DAILY 01/07/22 Sotalol HCl [Betapace*] 0.5 tab PO BID 01/07/22 Digoxin [Lanoxin*] 0.25 mg PO DAILY tab 01/09/22 Ferrous Sulfate [Ferrous Sulfate*] 325 mg PO BID tab 01/09/22 Glucerna Shake [Glucerna*] 237 ml PO BID can 01/09/22 Magnesium Oxide [Mag 0X*] 400 mg PO BID tab 01/09/22 Beto/Bacit/Poly Oint [Neosporin Ointment*] 1 appl TOP BID tube 01/09/22 Diet: AHA Activity: Fall precautions Followup: America Villafana DO [Primary Care Provider] - Time spent managing pt's care (in minutes): 33
[2022-01-09 21:40] VITALS: O2SAT 97
[2022-01-10 05:51] VITALS: BP 134/60; TEMP 98.8
--- NOTE | 2022-01-10 09:00 | EKG ---
Test Date: 2022-01-07 Test Time: 07:21:44 Manager Assurance: MEASUREMENT RESULTS: Intervals: Rate: 74 OR: QRSD: 90 QT: 460 QTc: 510 [employer]: P: OR: QRS: 24 T: 54 INTERPRETIVE STATEMENTS: Undetermined rhythm Moderate voltage criteria for LVH, may be normal variant Nonspecific T wave abnormality Abnormal ECG Compared to ECG 01/07/2022 07:19:56 T-wave abnormality now present Atrial fibrillation no longer present ST (T wave) deviation no longer present Electronically Signed On 01-10-22 08:55:50 CDT by Axel Lance
== END 2022-01-09 21:21 | DRG 640 ==
LOC: ER 06:45 → ERHOLD 10:09 → 2ND 12:48
PROVIDERS: ADMIT Internal Medicine; ATTEND Internal Medicine
DX: E87.1 Hypo-osmolality and hyponatremia (principal); E43 Unspecified severe protein-calorie malnutrition; Z68.1 Body mass index [BMI] 19.9 or less, adult; E86.0 Dehydration; R62.7 Adult failure to thrive; E87.6 Hypokalemia; R53.1 Weakness; W19.XXXA Unspecified fall, initial encounter; I10 Essential (primary) hypertension; D50.9 Iron deficiency anemia, unspecified; E11.9 Type 2 diabetes mellitus without complications; F03.90 Unspecified dementia, unspecified severity, without behavioral disturbance, psychotic disturbance, mood disturbance, and anxiety; M19.90 Unspecified osteoarthritis, unspecified site; E78.5 Hyperlipidemia, unspecified; Z20.822 Contact with and (suspected) exposure to COVID-19; Z79.01 Long term (current) use of anticoagulants; Z79.899 Other long term (current) drug therapy; Z86.73 Personal history of transient ischemic attack (TIA), and cerebral infarction without residual deficits; Z96.643 Presence of artificial hip joint, bilateral; Z82.49 Family history of ischemic heart disease and other diseases of the circulatory system; Z82.61 Family history of arthritis
CPT/HCPCS: 36415; 71045; 80048; 80061; 81003; 81015; 82533; 82550; 82947; 83735; 83880; 83930; 83935; 84100; 84132; 84295; 84300; 84439; 84443; 84484; 84550; 85025; 87804; 93005; 97116; 97161; 97530; 99285; J0360; J1644; J3480; J7040; U0003